=== PATIENT | male | born 1970 | race Caucasian/White ===

== ENCOUNTER 2017-08-03 12:56 | Emergency (ER) | payer MEDICAID, OTHER ==
[~2017-08-03] VITALS: Ht 190.5 cm; Wt 122.7 kg
[~2017-08-03 12:56] MED LIST: ALBU8.5H8 IH
[2017-08-03 13:24] LABS: BASOPHILS % (AUTO) 0.6 % (0-1); EOSINOPHILS # (AUTO) 0.3 X10'3 (0-0.9); EOSINOPHILS % (AUTO) 4.6 % (0-6); HEMATOCRIT 43.6 % (42.0-52.0); HEMOGLOBIN 14.4 g/dl (14.0-17.9); LYMPHOCYTES # (AUTO) 2.5 X10'3 (1.1-4.8); LYMPHOCYTES % (AUTO) 38.1 % (21-51); MEAN CORPUSCULAR HEMOGLOBIN 29.2 PG (27.0-31.0); MEAN CORPUSCULAR HGB CONC 33.1 % (33.0-36.5); MEAN CORPUSCULAR VOLUME 88.1 FL (78-98); MEAN PLATELET VOLUME 8.1 FL (7.4-10.4); MONOCYTES # (AUTO) 0.4 X10'3 (0-0.9); MONOCYTES % (AUTO) 6.4 % (2-12); NEUTROPHILS # (AUTO) 3.4 X10'3 (1.8-7.7); NEUTROPHILS % (AUTO) 50.3 % (42-75); PLATELET COUNT 195 X10'3 (140-440); RED BLOOD COUNT 4.96 X10'6 (4.70-6.10); RED CELL DISTRIBUTION WIDTH 14.4 % (11.5-14.5); WHITE BLOOD COUNT 6.7 X10'3 (4.5-11.0)
[2017-08-03 13:50] LABS: INR 0.9 INR; PARTIAL THROMBOPLASTIN TIME 28 SECONDS (22-32); PROTHROMBIN TIME 9.5 SECONDS (9.0-12.0)
[2017-08-03 13:57] LABS: ALANINE AMINOTRANSFERASE 27 U/L (12-78); ALBUMIN 3.8 G/DL (3.4-5.0); ALBUMIN/GLOBULIN RATIO 0.9 (1.1-1.5); ALKALINE PHOSPHATASE 70 IU/L (46-116); ANION GAP 9 (8-16); ASPARTATE AMINO TRANSFERASE 23 U/L (10-37); BILIRUBIN,TOTAL 0.9 MG/DL (0.1-1.0); BLOOD UREA NITROGEN 19 MG/DL (7-18); BUN/CREATININE RATIO 18.4 (5.4-32.0); CHLORIDE 102 MMOL/L (99-107); CREATININE 1.03 MG/DL (0.60-1.10); GLUCOSE 125 MG/DL (70-104); POTASSIUM 4.2 MMOL/L (3.5-5.1); SODIUM 138 MMOL/L (135-145); TOTAL CARBON DIOXIDE 26.7 MMOL/L (24-32); TOTAL PROTEIN 8.2 G/DL (6.4-8.2); eGFR 77 ML/MIN
[2017-08-03 14:07] VITALS: BP 117/70
== END 2017-08-03 14:31 | disposition home or self-care (01) ==
LOC: ER 12:57
DX: R07.89 Other chest pain (principal)
CPT/HCPCS: 36415; 71045; 80053; 83880; 84484; 85025; 85610; 85730; 93005; 99285

== ENCOUNTER 2019-05-22 14:42 | Emergency (ER) | payer MEDICAID ==
[~2019-05-22] VITALS: Ht 190.5 cm; Wt 116.0 kg
[~2019-05-22 14:42] MED LIST changes: +GUAI120015 PO; +METH4TAB3 PO
[2019-05-22] MEDS ORDERED: AMOX-422 PO (16:02)
== END 2019-05-22 16:29 | disposition home or self-care (01) ==
LOC: ER 14:43
DX: J06.9 Acute upper respiratory infection, unspecified (principal); J32.0 Chronic maxillary sinusitis
CPT/HCPCS: 99283

== ENCOUNTER 2019-09-28 11:28 | Emergency (ER) | payer MEDICAID ==
[~2019-09-28] VITALS: Ht 190.5 cm; Wt 110.5 kg
[2019-09-28] MEDS ORDERED: SULF1TAB49 PO (11:44)
[2019-09-28] MEDS ORDERED: ondansetron 4mg rapidly disintigrating tab PO ONE (11:45)
[2019-09-28] MEDS ORDERED: bacitracin 15gm ointment TP ONE (11:45)
[2019-09-28] MEDS ORDERED: sulfamethoxazole/trimethoprim DS (800/160mg) tablet PO ONE (11:45)
[2019-09-28] MEDS ORDERED: TETanus/Pertussis (Acell)/Diphther VAC/PF (Tdap-Adult) 0.5ml syringe IMVAC ONE (11:45)
[2019-09-28 12:15] VITALS: BP 132/70
== END 2019-09-28 12:20 | disposition home or self-care (01) ==
LOC: ER 11:28
DX: L03.116 Cellulitis of left lower limb (principal); M79.89 Other specified soft tissue disorders; M79.662 Pain in left lower leg; R50.9 Fever, unspecified; Z79.2 Long term (current) use of antibiotics; Z79.899 Other long term (current) drug therapy
CPT/HCPCS: 90471; 90715; 99283

== ENCOUNTER 2020-04-20 20:37 | Emergency (ER) | payer MEDICAID ==
[~2020-04-20] VITALS: Ht 190.5 cm; Wt 129.6 kg
[2020-04-20] MEDS ORDERED: benzonatate 100mg capsule PO ONE (21:30)
[2020-04-20] MEDS ORDERED: pseudoephedrine 30mg tablet PO ONE (21:30)
[2020-04-20] MEDS ORDERED: DEXT15LI3 PO (21:34)
== END 2020-04-20 21:47 | disposition home or self-care (01) ==
LOC: ER 20:38
DX: J20.9 Acute bronchitis, unspecified (principal); Z79.899 Other long term (current) drug therapy
CPT/HCPCS: 99283

== ENCOUNTER 2021-11-09 15:00 | Inpatient (IN) | payer MEDICAID ==
[~2021-11-09] VITALS: Ht 190.5 cm; Wt 124.5 kg
[~2021-11-09 15:00] MED LIST changes: +ALBU8.5H17 IH; -ALBU8.5H8 IH; +DEXT15LI3 PO
[2021-11-09] MEDS ORDERED: acetaminophen 325mg tablet PO STA (16:22)
[2021-11-09] MEDS ORDERED: piperacillin/tazo 3.375gm/50ml 50 ML IV ONE (16:25)
[2021-11-09] MEDS ORDERED: normal saline 1000ML IV soln IV ONE (16:25)
[2021-11-09 16:32] LABS: CLARITY,URINE CLEAR (Clear); GLUCOSE, URINE NEGATIVE (Neg); KETONES,URINE NEGATIVE (Neg); LEUKOCYTE ESTERASE ,URINE NEGATIVE (Neg); NITRITES, URINE NEGATIVE (Neg); OCCULT BLOOD,URINE TRACE-INTACT (Neg); PROTEIN,URINE TRACE mg/dl (Neg)
[2021-11-09 16:35] LABS: COLOR,URINE DARK YELLOW (Yellow); UA COLLECTION TYPE CLN CATCH MIDSTREAM
[2021-11-09 16:40] LABS: BACTERIA,URINE FEW /HPF (Neg); FINE GRANULAR CAST 0-3 /LPF (NEGATIVE); HYALINE CASTS 0-3 /LPF (NEGATIVE); MUCUS STRANDS FEW /LPF (Neg); RBC,URINE 0-2 /HPF (0-2); SQUAMOUS EPITHELIAL CELL,UR NONE SEEN /LPF (FEW); WBC,URINE 0-4 /HPF (0-4)
[2021-11-09 17:11] LABS: BASOPHILS # (AUTO) 0.1 X10'3 (0-0.2); BASOPHILS % (AUTO) 0.5 % (0-1); EOSINOPHILS % (AUTO) 0.1 % (0-6); HEMOGLOBIN 12.6 g/dl (14.0-17.9); LYMPHOCYTES # (AUTO) 2.1 X10'3 (1.1-4.8); LYMPHOCYTES % (AUTO) 11.1 % (21-51); MEAN CORPUSCULAR HEMOGLOBIN 28.7 PG (27.0-31.0); MEAN CORPUSCULAR HGB CONC 33.1 g/dL (33.0-36.5); MEAN CORPUSCULAR VOLUME 86.6 FL (78-98); MEAN PLATELET VOLUME 9.1 FL (7.4-10.4); MONOCYTES # (AUTO) 1.2 X10'3 (0-0.9); MONOCYTES % (AUTO) 6.6 % (2-12); NEUTROPHILS # (AUTO) 15.2 X10'3 (1.8-7.7); NEUTROPHILS % (AUTO) 81.7 % (42-75); PLATELET COUNT 162 X10'3 (140-440); RED BLOOD COUNT 4.39 X10'6 (4.70-6.10); RED CELL DISTRIBUTION WIDTH 13.6 % (11.5-14.5); WHITE BLOOD COUNT 18.6 X10'3 (4.5-11.0)
[2021-11-09 17:29] LABS: ALANINE AMINOTRANSFERASE 29 U/L (12-78); ALBUMIN 3.2 G/DL (3.4-5.0); ALBUMIN/GLOBULIN RATIO 0.7 (1.1-1.5); ALKALINE PHOSPHATASE 70 IU/L (46-116); ANION GAP 7 (8-16); ASPARTATE AMINO TRANSFERASE 33 U/L (10-37); BILIRUBIN,TOTAL 2.1 MG/DL (0.1-1.0); BLOOD UREA NITROGEN 18 MG/DL (7-18); BUN/CREATININE RATIO 13.2 (5.4-32.0); CALCIUM 8.4 MG/DL (8.5-10.1); CHLORIDE 100 MMOL/L (99-107); CREATININE 1.36 MG/DL (0.60-1.10); GLUCOSE 116 MG/DL (70-104); POTASSIUM 3.6 MMOL/L (3.5-5.1); SODIUM 133 MMOL/L (135-145); TOTAL PROTEIN 7.7 G/DL (6.4-8.2); eGFR 55 ML/MIN
[2021-11-09] MEDS ORDERED: albuterol 2.5 MG/3 ML nebule NEB PRN (18:45)
[2021-11-09] MEDS ORDERED: mag hydrox/Alum hydrox/simeth 30ml oral suspension PO PRN (18:45)
[2021-11-09] MEDS ORDERED: magnesium 4gm in 100ml NS 100 ML IV PRN (18:45)
[2021-11-09] MEDS ORDERED: magnesium hydroxide 30ml (MOM) UD suspension PO PRN (18:45)
[2021-11-09] MEDS ORDERED: potassium CL 10mEq/100ml bag 100 ML IV PRN (18:45)
[2021-11-09] MEDS ORDERED: acetaminophen 325mg tablet PO PRN ×2 (18:45)
[2021-11-09] MEDS ORDERED: HYDROcodone/acetaminophen 10/325mg tab PO PRN (18:45)
[2021-11-09] MEDS ORDERED: ipratropium/albuterol 3ml nebule NEB PRN (18:45)
[2021-11-09] MEDS ORDERED: POTASSIUM BICARB 20meq eff tab 20 MEQ TABLET.EFF PO PRN ×2 (18:45)
[2021-11-09] MEDS ORDERED: HYDROcodone/acetaminophen 5mg/325mg tablet PO PRN (18:45)
[2021-11-09] MEDS ORDERED: ondansetron/PF 4mg/2ml inj IV PRN (18:45)
[2021-11-09] MEDS ORDERED: magnesium 2GM in 50ml NS 50 ML IV PRN (18:45)
[2021-11-09] MEDS: normal saline 1000ml 1,000 ML IV SCH (18:45)
[2021-11-09] MEDS ORDERED: vancomycin inj 1,000 MG in normal saline 250ml IV soln 250 ML IV ONE (18:45)
[2021-11-09] MEDS ORDERED: vancomycin/NS 1 GM ADD-VANTAGE 250 ML IV ONE (19:26)
[2021-11-09] MEDS: docusate sod 100mg capsule PO SCH (20:00)
[2021-11-09] MEDS: K and/or MAG REPLACEMENT MC SCH (20:00)
[2021-11-09] MEDS: enoxaparin 40mg/0.4ml syringe SQ SCH (21:05)
[2021-11-09 21:30] VITALS: BP 122/69
--- NOTE | 2021-11-09 22:10 | NUR ---
Patient arrived to unit, [employer] transported patient via gurney. Patient was fatigued but able to anser quetions and transfer himself to the bed.
[2021-11-09 23:03] LABS: URINE AMPHETAMINE SCREEN POSITIVE (Neg); URINE BARBITUATE SCREEN NEGATIVE (Neg); URINE BENZODIAZEPINES SCREEN NEGATIVE (Neg); URINE CANNABINOID SCREEN NEGATIVE (Neg); URINE COCAINE SCREEN NEGATIVE (Neg); URINE METHADONE SCREEN NEGATIVE (Neg); URINE OPIATE SCREEN NEGATIVE (Neg); URINE PHENCYCLIDINE SCREEN NEGATIVE (Neg)
[2021-11-10] MEDS: piperacillin/tazo 4.5gm/100ml 100 ML IV SCH ×2 (00:26→07:49)
[2021-11-10] MEDS: normal saline 1000ml 1,000 ML IV SCH ×3 (04:45→23:31)
[2021-11-10 06:00] VITALS: BP 105/57
--- NOTE | 2021-11-10 06:29 | NUR ---
Problems reprioritized. Patient report given, questions answered & plan of care reviewed with CRISTINA Bullock.
[2021-11-10 06:38] LABS: BASOPHILS # (AUTO) 0.1 X10'3 (0-0.2); BASOPHILS % (AUTO) 0.3 % (0-1); EOSINOPHILS % (AUTO) 0.1 % (0-6); HEMATOCRIT 33.8 % (42.0-52.0); HEMOGLOBIN 11.3 g/dl (14.0-17.9); LYMPHOCYTES # (AUTO) 1.7 X10'3 (1.1-4.8); MEAN CORPUSCULAR HGB CONC 33.4 g/dL (33.0-36.5); MEAN CORPUSCULAR VOLUME 86.8 FL (78-98); MEAN PLATELET VOLUME 9.3 FL (7.4-10.4); MONOCYTES % (AUTO) 5.7 % (2-12); NEUTROPHILS # (AUTO) 14.2 X10'3 (1.8-7.7); NEUTROPHILS % (AUTO) 83.9 % (42-75); PLATELET COUNT 149 X10'3 (140-440); RED BLOOD COUNT 3.89 X10'6 (4.70-6.10); RED CELL DISTRIBUTION WIDTH 13.7 % (11.5-14.5)
[2021-11-10 06:55] LABS: ALANINE AMINOTRANSFERASE 20 U/L (12-78); ALBUMIN 2.5 G/DL (3.4-5.0); ALBUMIN/GLOBULIN RATIO 0.6 (1.1-1.5); ALKALINE PHOSPHATASE 68 IU/L (46-116); ANION GAP 9 (8-16); ASPARTATE AMINO TRANSFERASE 26 U/L (10-37); BILIRUBIN,TOTAL 2.7 MG/DL (0.1-1.0); BLOOD UREA NITROGEN 15 MG/DL (7-18); BUN/CREATININE RATIO 14.6 (5.4-32.0); CHLORIDE 102 MMOL/L (99-107); CREATININE 1.03 MG/DL (0.60-1.10); GLUCOSE 104 MG/DL (70-104); POTASSIUM 3.9 MMOL/L (3.5-5.1); SODIUM 136 MMOL/L (135-145); TOTAL CARBON DIOXIDE 25.3 MMOL/L (24-32); TOTAL PROTEIN 6.7 G/DL (6.4-8.2); eGFR 76 ML/MIN
[2021-11-10] MEDS: K and/or MAG REPLACEMENT MC SCH ×2 (07:53→20:00)
[2021-11-10] MEDS: docusate sod 100mg capsule PO SCH ×2 (07:53→20:00)
[2021-11-10] MEDS ORDERED: vancomycin/NS 1 GM ADD-VANTAGE 250 ML IV SCH (08:00)
[2021-11-10 10:00] VITALS: BP 115/72
[2021-11-10] MEDS: ceFAZolin/D5W- 1GM premix 50 ML IV SCH ×2 (17:16→23:36)
[2021-11-10 18:00] VITALS: BP 108/56
--- NOTE | 2021-11-10 18:08 | NUR ---
Problems reprioritized. Patient report given, questions answered & plan of care reviewed with CRISTINA Salter.
--- NOTE | 2021-11-10 18:14 | NUR ---
Patient in room [facility]. I have received report from CRISTINA Bullock and had the opportunity to ask questions and assume patient care.
[2021-11-10] MEDS: enoxaparin 40mg/0.4ml syringe SQ SCH (20:22)
[2021-11-11 01:27] VITALS: BP 126/57
[2021-11-11 06:00] VITALS: BP 112/61
--- NOTE | 2021-11-11 06:12 | NUR ---
Problems reprioritized. Patient report given, questions answered & plan of care reviewed with CRISTINA MORGAN.
--- NOTE | 2021-11-11 06:20 | NUR ---
received report from mingo ma
[2021-11-11] MEDS ORDERED: VANCOMYCIN LEVEL IV ONE (07:30)
[2021-11-11] MEDS: K and/or MAG REPLACEMENT MC SCH (07:34)
[2021-11-11] MEDS: ceFAZolin/D5W- 1GM premix 50 ML IV SCH ×2 (07:38→15:58)
[2021-11-11] MEDS: docusate sod 100mg capsule PO SCH (07:39)
[2021-11-11 09:06] LABS: BASOPHILS # (AUTO) 0.1 X10'3 (0-0.2); BASOPHILS % (AUTO) 0.8 % (0-1); EOSINOPHILS # (AUTO) 0.1 X10'3 (0-0.9); EOSINOPHILS % (AUTO) 0.7 % (0-6); HEMATOCRIT 34.2 % (42.0-52.0); HEMOGLOBIN 11.4 g/dl (14.0-17.9); LYMPHOCYTES # (AUTO) 1.7 X10'3 (1.1-4.8); LYMPHOCYTES % (AUTO) 16.5 % (21-51); MEAN CORPUSCULAR HEMOGLOBIN 29.1 PG (27.0-31.0); MEAN CORPUSCULAR HGB CONC 33.4 g/dL (33.0-36.5); MEAN PLATELET VOLUME 9.6 FL (7.4-10.4); MONOCYTES # (AUTO) 0.6 X10'3 (0-0.9); MONOCYTES % (AUTO) 5.3 % (2-12); NEUTROPHILS # (AUTO) 8.1 X10'3 (1.8-7.7); NEUTROPHILS % (AUTO) 76.7 % (42-75); PLATELET COUNT 155 X10'3 (140-440); RED BLOOD COUNT 3.92 X10'6 (4.70-6.10); RED CELL DISTRIBUTION WIDTH 14.1 % (11.5-14.5); WHITE BLOOD COUNT 10.6 X10'3 (4.5-11.0)
[2021-11-11 09:09] LABS: ALANINE AMINOTRANSFERASE 28 U/L (12-78); ALBUMIN 2.5 G/DL (3.4-5.0); ALBUMIN/GLOBULIN RATIO 0.6 (1.1-1.5); ALKALINE PHOSPHATASE 75 IU/L (46-116); ANION GAP 8 (8-16); ASPARTATE AMINO TRANSFERASE 34 U/L (10-37); BILIRUBIN,TOTAL 1.5 MG/DL (0.1-1.0); BLOOD UREA NITROGEN 11 MG/DL (7-18); BUN/CREATININE RATIO 13.4 (5.4-32.0); CHLORIDE 106 MMOL/L (99-107); CREATININE 0.82 MG/DL (0.60-1.10); GLUCOSE 125 MG/DL (70-104); POTASSIUM 3.7 MMOL/L (3.5-5.1); SODIUM 138 MMOL/L (135-145); TOTAL CARBON DIOXIDE 24.3 MMOL/L (24-32); TOTAL PROTEIN 6.8 G/DL (6.4-8.2); eGFR > 90 ML/MIN
[2021-11-11 09:12] LABS: VANCOMYCIN,TROUGH 2.2 UG/ML (6.0-14.0)
[2021-11-11 10:00] VITALS: BP 121/66
--- NOTE | 2021-11-11 18:24 | NUR ---
gave report to august,
--- NOTE | 2021-11-11 19:10 | NUR ---
Pt not in the room,found iv on the floor.Informed Dr. Daniel.
== END 2021-11-11 19:27 | disposition left against medical advice (07) | DRG 720 ==
LOC: ER 15:01 → ED HOLD 18:47 → UNDOADMIN 19:44 → EDBEDREQ 21:12 → ED HOLD 22:11 → ORTHO 4S 22:11 → UNDODISIN 11-11 19:27
PROVIDERS: ADMIT Family Medicine; ATTEND Family Medicine
DX: A41.9 Sepsis, unspecified organism (principal); N17.0 Acute kidney failure with tubular necrosis; E87.1 Hypo-osmolality and hyponatremia; L03.116 Cellulitis of left lower limb; F17.210 Nicotine dependence, cigarettes, uncomplicated; L03.115 Cellulitis of right lower limb; F15.10 Other stimulant abuse, uncomplicated; Z20.822 Contact with and (suspected) exposure to COVID-19; Z53.29 Procedure and treatment not carried out because of patient's decision for other reasons; Z88.8 Allergy status to other drugs, medicaments and biological substances; Z79.899 Other long term (current) drug therapy; Z71.6 Tobacco abuse counseling; Z71.51 Drug abuse counseling and surveillance of drug abuser
CPT/HCPCS: 36415; 71045; 80053; 80202; 80305; 81001; 83605; 83735; 84145; 85025; 87040; 87081; 87502; 87503; 87635; 94760; 96374; 96375; 97116; 97161; 97530; 99285; C9803; G0378; J0690; J1650; J2543; J3370; J7030

== ENCOUNTER 2022-11-03 01:05 | Emergency (ER) | payer MEDICAID ==
[~2022-11-03] VITALS: Ht 190.5 cm; Wt 118.8 kg
[2022-11-03 01:07] VITALS: BP 155/82
[2022-11-03] MEDS ORDERED: ibuprofen tablet 400 MG TABLET PO ONE (01:15)
[2022-11-03] MEDS ORDERED: acetaminophen 325mg tablet PO ONE (01:15)
== END 2022-11-03 02:22 | disposition home or self-care (01) ==
LOC: ER 01:05
DX: B34.9 Viral infection, unspecified (principal); R50.9 Fever, unspecified; F17.210 Nicotine dependence, cigarettes, uncomplicated
CPT/HCPCS: 71045; 99283